=== PATIENT | male | born 1985 | race Two or more races ===

== ENCOUNTER 2021-05-23 01:20 | Emergency (ER) | payer OTHER ==
[2021-05-23] MEDS ORDERED: Bupivacaine 0.5% 10 ML SDV INJECT ONE (01:58)
[2021-05-23] MEDS ORDERED: Lidocaine 1% 10 ML MDV INJECT ONE (01:58)
--- NOTE | 2021-05-23 02:01 | EDM.PDOC ---
ED HPI GENERAL MEDICAL PROBLEM - General Chief Complaint: Upper Extremity Injury/Pain Stated Complaint: LEFT HAND INJURY Time Seen by Provider: 05/23/21 01:49 Source of Information: Reports: Patient History Limitations: Reports: No Limitations - History of Present Illness INITIAL COMMENTS - FREE TEXT/NARRATIVE: Mr. Kamara is a very pleasant 36-year-old gentleman who now presents the ED with a left 4th finger injury. He states that he struck it with a hammer around 2330 last night, while at work, however, he was wearing gloves, and it was very cold, and he did not realize that he had injured his finger until he took his gloves off sometime later, revealing a significant laceration. He states that he washed the wound with soap and water and took ibuprofen before coming to the ED. At triage, the patient was found to be hemodynamically stable, afebrile, saturating 100% on room air. He appears to be comfortable, in no acute distress. Other than his finger injury, the patient denies having a recent fever, chills, sore throat, ear pain, nasal or sinus congestion, cough, dyspnea, chest pain, palpitations, nausea, vomiting, constipation, diarrhea, abdominal pain, urinary symptoms, recent weight gain or weight loss, recent bloody bowel movements or black bowel movements, recent joint aches, headaches, or rashes. The patient's PCP is in [place]. He is in this area for work. He has received 2 Moderna COVID vaccinations, although no influenza vaccination this season. He is certain that his last tetanus vaccination was less than 10 years ago. Left Finger-Ring Pain Score (Numeric/FACES): 6 - Related Data Allergies Allergy/AdvReac Type Severity Reaction Status Date / Time No Known Allergies Allergy Verified 05/23/21 01:35 Home Meds: Home Meds cephALEXin [Cephalexin] 1 cap PO Q8H #21 capsule 05/23/21 [Rx] Past Medical History Cardiovascular History: Reports: High Cholesterol (untreated) - Past Surgical History GI Surgical History: Reports: Appendectomy Social & Family History - Tobacco Use Tobacco Use Status *Q: Never Tobacco User - Alcohol Use Alcohol Use History: Yes Alcohol Use Frequency: Socially - Recreational Drug Use Recreational Drug Use: No - Living Situation & Occupation Living situation: Reports: , with Spouse, with Family (2 kids) Occupation: Employed (fryer operator in the oilfield) Review of Systems - Review of Systems Review Of Systems: Comprehensive ROS is negative, except as noted in HPI. ED EXAM, GENERAL - Physical Exam Exam: See Below Exam Limited By: No Limitations General Appearance: Alert, WD/WN, No Apparent Distress Extremities: Other (Approximately 3.5 cm irregular laceration to the dorso-ulnar aspect of the middle phalanx of the patient's left 4th finger. No tendinous 3, and neurovascular status of the finger is intact. The wound is not currently bleeding.) ED TRAUMA EXTREMITY PROCEDURES - Laceration/Wound Repair Left Hand Lac/Wound Length In cm: 3.5 Appearance: Subcutaneous, Irregular, Clean Distal NVT: Neuro & Vascular Intact, No Tendon Injury Anesthetic Type: Digital Local Anesthesia - Lidocaine (Xylocaine): 1% Plain (50:50 mixture) Local Anesthesia - Bupivicaine (Marcaine): 0.5% Plain (50:50 mixture) Local Anesthetic Volume: 5cc Skin Prep: Saline Exploration/Debridement/Repair: Wound Explored, In a Bloodless Field, Explored to Base, No Foreign Material Found Closed With: Sutures Suture Size: 3-0 # of Sutures: 5 Suture Type: Nylon (Ethilon), Interrupted, Simple Sterile Dressing Applied: Nurse Tetanus Status Addressed: Yes Complications: No Course - Vital Signs Last Recorded V/S: Last Vital Signs Temp 36.0 C L 05/23/21 01:32 Pulse 92 05/23/21 01:32 Resp 18 05/23/21 01:32 BP 134/75 05/23/21 01:32 Pulse Ox 100 05/23/21 01:32 - Orders/Labs/Meds Orders: Active Orders 24 hr Category Date Time Status Fingers Fifth Digit Lt F4 [CR] Stat Exams 05/23/21 01:35 Taken Meds: Medications Discontinued Medications Generic Name Dose Route Start Last Admin Trade Name Freq PRN Reason Stop Dose Admin Bupivacaine HCl 10 ml 05/23/21 01:58 05/23/21 02:07 Bupivacaine 0.5% 10 Ml Sdv INJECT 05/23/21 01:59 10 ml ONETIME ONE Administration Cephalexin 500 mg 05/23/21 03:11 05/23/21 03:22 Cephalexin 500 Mg Cap PO 05/23/21 03:12 500 mg ONETIME STA Administration Lidocaine HCl 10 ml 05/23/21 01:58 05/23/21 02:07 Lidocaine 1% 10 Ml Mdv INJECT 05/23/21 01:59 10 ml ONETIME ONE Administration - Re-Assessments/Exams Free Text/Narrative Re-Assessment/Exam: 05/23/21 01:59 Radiographs of the left 4th finger were ordered at triage. 3-view radiographs of the left 4th finger appear to be grossly normal, with no fractures or dislocations identified. Formal read per the Radiologist pending. The laceration to the dorso-ulnar aspect of the finger will need to be sutured, but I may have some difficulty approximating the edges, since there appears to be considerable edema under the ulnar aspect of the wound. I will perform a digital block and see what I can do. 05/23/21 03:10 Despite 2 digital blocks using a 50:50 mixture of prilocaine 0.5% without epinephrine and lidocaine 1% without epinephrine, the patient had inadequate anesthesia, therefore some additional local filtration was necessary. The wound edges were then approximated with 5 simple interrupted sutures using 3-0 Ethilon. The patient tolerated the procedure well. He is to keep the wound clean with ordinary soap and water, then cover with a sterile bandage, daily. I will start him on cephalexin to prevent an infection. The sutures should be ready for removal in 7 days. Departure - Departure Time of Disposition: 03:12 Disposition: Home, Self-Care 01 Condition: Good Clinical Impression: Laceration of left ring finger - Discharge Information *PRESCRIPTION DRUG MONITORING PROGRAM REVIEWED*: Not Applicable *COPY OF PRESCRIPTION DRUG MONITORING REPORT IN PATIENT JAISON: Not Applicable Prescriptions: cephALEXin [Cephalexin] 1 cap PO Q8H #21 capsule Instructions: Laceration Care, Adult, [id number] Referrals: PCP,None [Primary Care Provider] - Forms: ED Department Discharge Additional Instructions: You were seen in the emergency room after suffering a laceration to your left ring finger after striking it with a hammer while at work. Work-up in the ER included x-rays of your finger, which showed no broken bones. Your wound was closed with 5 sutures in the ER. Keep the wound clean with ordinary soap and water when you bathe. Pat dry, then cover with a sterile bandage, daily. Try not to allow the finger to get wet. No dishes, soaking in the tub, or swimming. If the wound does get wet or dirty, reclean it, pat it dry, then apply a new sterile bandage. You have been started on antibiotic cephalexin (Keflex), and a prescription for cephalexin has been sent to the [facility] located just south and across the [address] from [facility]. The pharmacy will be open between noon and 4 PM today. Take 1 capsule of cephalexin every 8 hours, starting this afternoon, 05/23/2021, as prescribed. Finish the entire prescription unless told otherwise by a doctor. The sutures should be ready for removal by 05/31/2020. They can be removed at the walk-in clinic or in the ER. If you follow the instructions as above, it is unlikely that your finger will become infected, but if there are any concerns of an infection, such as significant swelling, redness, drainage, or inordinate pain, please do not hesitate to return to the ER for reevaluation. Sepsis Event Note (ED) - Evaluation Sepsis Screening Result: No Definite Risk - Focused Exam Vital Signs: Vital Signs Temp Pulse Resp BP Pulse Ox 05/23/21 01:32 36.0 C L 92 18 134/75 100 - My Orders Last 24 Hours: My Active Orders 05/23/21 01:35 Fingers Fifth Digit Lt F4 [CR] Stat - Assessment/Plan Last 24 Hours: My Active Orders 05/23/21 01:35 Fingers Fifth Digit Lt F4 [CR] Stat
[2021-05-23] MEDS ORDERED: Cephalexin 500 MG Cap PO STA (03:11)
--- NOTE | 2021-05-24 09:11 | CR ---
EXAM: XR FINGER 4TH DIGIT LEFT LOCATION: [facility] DATE/TIME: 05/23/2021 1:37 AM INDICATION: Crush injury to left 4th digit COMPARISON: None. IMPRESSION: 3 views of left ring finger. No fracture or dislocation. SIGNED BY: Jacobo Kessler MD 05/23/2021 2:49 AM [facility]
== END 2021-05-23 03:30 | disposition home or self-care (01) ==
LOC: JD.ED 01:20
DX: S61.215A Laceration without foreign body of left ring finger without damage to nail, initial encounter (principal); W22.09XA Striking against other stationary object, initial encounter; Y99.0 Civilian activity done for income or pay
CPT/HCPCS: 12002; 73140; 99283; A9270; J3490